=== PATIENT | female | born 1990 | race African-American/Black ===

== ENCOUNTER 2017-04-25 21:59 | Emergency (ER) | payer OTHER, MEDICAID ==
[~2017-04-25] VITALS: Ht 165.1 cm; Wt 73.0 kg
[2017-04-25 22:04] VITALS: BP 114/83
== END 2017-04-26 02:00 | disposition left against medical advice (07) ==
LOC: ER 22:09
DX: K08.89 Other specified disorders of teeth and supporting structures (principal); Z53.21 Procedure and treatment not carried out due to patient leaving prior to being seen by health care provider

== ENCOUNTER 2021-02-10 18:47 | Emergency (ER) | payer MEDICAID, OTHER ==
[~2021-02-10] VITALS: Ht 162.6 cm; Wt 68.0 kg
[2021-02-10 18:52] VITALS: BP 142/88
== END 2021-02-10 20:05 | disposition left against medical advice (07) ==
LOC: ER 18:47
DX: R00.2 Palpitations (principal); F41.9 Anxiety disorder, unspecified; E11.9 Type 2 diabetes mellitus without complications; F20.9 Schizophrenia, unspecified
CPT/HCPCS: 99283